=== PATIENT | male | born 1980 | race Caucasian/White ===

== ENCOUNTER 2024-04-02 09:24 | Emergency (ER) | payer SELFPAY ==
--- OUTSIDE RECORDS SUMMARY | 2024-04-02 09:27 | XMS REPORT | Continuity of Care Document ---
Author Name Unknown Address [address] [facility] [address] [id number] [facility] thconnect Address [address] [facility]. 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
[2024-04-02] MEDS ORDERED: KETOROLAC 30 MG/ML INJ ONE (09:41)
--- NOTE | 2024-04-02 10:01 | RAD REPORT ---
Exam:Shoulder Right 2+ Views History: Right shoulder pain Findings: No fracture or dislocation seen Mild narrowing of the AC joint with tiny osteophytes.
--- NOTE | 2024-04-02 10:01 | RAD REPORT ---
Exam:C Spine Ap/Lat CLINICAL INDICATION: Neck pain Findings: No fracture or dislocation seen. Mild anterior subluxation C7 on T1. Mild spondylosis involves the cervical spine.
--- NOTE | 2024-04-02 10:04 | RAD REPORT ---
Procedure: Chest Pa And Lat (2 Views) HISTORY: Cough COMPARISON: none FINDINGS: 5 mm nodular opacity medial left upper lobe. Remainder of the lungs appear clear of acute infiltrate. No significant pleural effusion noted. The heart is normal size. IMPRESSION: 5 mm nodular opacity left lung likely either a pulmonary vessel seen on end or a benign lung nodule. It is recommended that patient have a follow-up chest x-ray in 3 months for reevaluation.
--- NOTE | 2024-04-02 10:17 | ER ---
Nurse's Notes [facility] Name: Ander Hercules Age: 43 yrs Sex: Male : 1980 Arrival Date: 04/02/2024 Time: 09:24 Bed 14 Private MD: Diagnosis: Pain in right shoulder;Solitary pulmonary nodule;Spondylolysis, cervical region Presentation: 04/02 09:40 Chief complaint: Patient states: thinks he slept wrong, right shoulder is hurting since iw yesterday morning. Coronavirus screen: At this time, the client does not indicate any symptoms associated with coronavirus-19. Ebola Screen: No symptoms or risks identified at this time. Initial Sepsis Screen: Does the patient meet any 2 criteria? No. Patient's initial sepsis screen is negative. Does the patient have a suspected source of infection? No. Patient's initial sepsis screen is negative. Risk Assessment: Do you want to hurt yourself or someone else? Patient reports no desire to harm self or others. Onset of symptoms was March 31, 2024. 09:40 Method Of Arrival: Ambulatory iw 09:40 Acuity: ISIDORO 3 iw Historical: - Allergies: 09:41 No Known Allergies; iw - Home Meds: 09:41 None [Active]; iw - PMHx: 09:41 None; iw - PSHx: 09:41 None; iw - Immunization history:: Adult Immunizations unknown. - Infectious Disease History:: Denies. - Social history:: Smoking status: unknown. Screenin:16 [facility] ED Fall Risk Assessment (Adult) History of falling in the last 3 months, iw including since admission No falls in past 3 months (0 pts) Confusion or Disorientation No (0 pts) Intoxicated or Sedated No (0 pts) Impaired Gait No (0 pts) Mobility Assist Device Used No (0 pt) Altered Elimination No (0 pt) Score/Fall Risk Level 0 - 2 = Low Risk Oriented to surroundings. Abuse screen: Denies threats or abuse. Nutritional screening: No deficits noted. Tuberculosis screening: No symptoms or risk factors identified. Assessment: 09:45 General: Appears in no apparent distress. Behavior is calm, cooperative. Pain: iw Complains of pain in posterior aspect of right shoulder and anterior aspect of right shoulder. Neuro: Level of Consciousness is awake, alert, obeys commands, Oriented to person, place, time, situation, Moves all extremities. Full function. Cardiovascular: Patient's skin is warm and dry. Respiratory: Respiratory effort is even, unlabored, Respiratory pattern is regular. Derm: Skin is intact, is healthy with good turgor. 10:21 Reassessment: Patient appears in no apparent distress at this time. Patient and/or db family updated on plan of care and expected duration. Pain level reassessed. Patient is alert, oriented x 3, equal unlabored respirations, skin warm/dry/pink. Vital Signs: 09:41 BP 119 / 83; Pulse 69; Resp 18; Temp 98.4; Pulse Ox 100% ; Weight 61.23 kg; Height 5 iw ft. 10 in. ; Pain 3/10; 09:41 Body Mass Index 19.37 (61.23 kg, 177.8 cm) iw 09:41 Pain Scale: Adult iw ED Course: 09:27 Patient arrived in ED. mr 09:27 Lamin Shafer MD is Attending Physician. ec2 09:30 Attending Physician role handed off by Lamin Shafer MD ec2 09:30 Huber Cunha MD is Attending Physician. ec2 09:41 Triage completed. iw 09:49 Verna Strange, RN is Primary Nurse. iw 09:59 C Spine Ap/Lat XRAY In Process Unspecified. EDMS 09:59 Shoulder Right (2 View) XRAY In Process Unspecified. EDMS 09:59 Chest Pa And Lat (2 Views) XRAY In Process Unspecified. EDMS 10:16 Ortega Alfredo MD is Referral Physician. dale 10:17 Patient has correct armband on for positive identification. Provided Education on: . iw 10:17 No provider procedures requiring assistance completed. Patient did not have IV access iw during this emergency room visit. 10:32 Arm band placed on Patient placed in an exam room. db Administered Medications: 09:49 Drug: Ketorolac IM 60 mg IM once Route: IM; Site: right ventrogluteal; iw 10:21 Follow up: Response: No adverse reaction; Pain is decreased db Medication: 10:21 VIS not applicable for this client. db Outcome: 10:17 Discharge ordered by . dale 10:21 Discharged to home ambulatory, db 10:21 Condition: stable 10:21 Discharge instructions given to patient, Instructed on discharge instructions, follow up and referral plans. Prescriptions given X 2, 10:32 Patient left the ED. db Signatures: Dispatcher [employer] Huber Griffin MD MD cha Rivera, [facility], [facility] Reg mr Verna Strange RN RN iw Benton, Danielle, RN RN db Corral, Edwin, MD MD ec2
--- NOTE | 2024-04-02 10:17 | EDPHYS ---
Physician Documentation [facility] Name: Ander Hercules Age: 43 yrs Sex: Male : 1980 Arrival Date: 04/02/2024 Time: 09:24 Bed 14 Private MD: ED Physician Huber Cunha HPI: 04/02 10:01 This 43 yrs old Male presents to ER via Ambulatory with complaints of dale Shoulder Pain. Historical: - Allergies: 09:41 No Known Allergies; iw - Home Meds: 09:41 None [Active]; iw - PMHx: :41 None; iw - PSHx: 09:41 None; iw - Immunization history:: Adult Immunizations unknown. - Infectious Disease History:: Denies. - Social history:: Smoking status: unknown. ROS: 10:12 Constitutional: Negative for fever, chills, and weight loss, Eyes: Negative for injury, dale pain, redness, and discharge, ENT: Negative for injury, pain, and discharge, Neck: Negative for injury, pain, and swelling, Cardiovascular: Negative for chest pain, palpitations, and edema, Respiratory: Negative for shortness of breath, cough, wheezing, and pleuritic chest pain, Abdomen/GI: Negative for abdominal pain, nausea, vomiting, diarrhea, and constipation, Back: Negative for injury and pain, : Negative for injury, bleeding, discharge, and swelling, Skin: Negative for injury, rash, and discoloration, Neuro: Negative for headache, weakness, numbness, tingling, and seizure, Psych: Negative for depression, anxiety, suicide ideation, homicidal ideation, and hallucinations, Allergy/Immunology: Negative for hives, rash, and allergies, Endocrine: Negative for neck swelling, polydipsia, polyuria, polyphagia, and marked weight changes, Hematologic/Lymphatic: Negative for swollen nodes, abnormal bleeding, and unusual bruising, 10:12 MS/extremity: Positive for decreased range of motion, pain, tenderness, of the anterior aspect of right shoulder and posterior aspect of right shoulder, Exam: 10:12 Constitutional: This is a well developed, well nourished patient who is awake, alert, dale and in no acute distress. Head/Face: Normocephalic, atraumatic. Eyes: Pupils equal round and reactive to light, extra-ocular motions intact. Lids and lashes normal. Conjunctiva and sclera are non-icteric and not injected. Cornea within normal limits. Periorbital areas with no swelling, redness, or edema. ENT: Nares patent. No nasal discharge, no septal abnormalities noted. Tympanic membranes are normal and external auditory canals are clear. Oropharynx with no redness, swelling, or masses, exudates, or evidence of obstruction, uvula midline. Mucous membranes moist. Neck: Trachea midline, no thyromegaly or masses palpated, and no cervical lymphadenopathy. Supple, full range of motion without nuchal rigidity, or vertebral point tenderness. No Meningismus. Chest/axilla: Normal chest wall appearance and motion. Nontender with no deformity. No lesions are appreciated. Cardiovascular: Regular rate and rhythm with a normal S1 and S2. No gallops, murmurs, or rubs. Normal PMI, no JVD. No pulse deficits. Respiratory: Lungs have equal breath sounds bilaterally, clear to auscultation and percussion. No rales, rhonchi or wheezes noted. No increased work of breathing, no retractions or nasal flaring. Abdomen/GI: Soft, non-tender, with normal bowel sounds. No distension or tympany. No guarding or rebound. No evidence of tenderness throughout. Back: No spinal tenderness. No costovertebral tenderness. Full range of motion. Male : Normal genitalia with no discharge or lesions. Skin: Warm, dry with normal turgor. Normal color with no rashes, no lesions, and no evidence of cellulitis. Neuro: Awake and alert, GCS 15, oriented to person, place, time, and situation. Cranial nerves II-XII grossly intact. Motor strength 5/5 in all extremities. Sensory grossly intact. Cerebellar exam normal. Normal gait. Psych: Awake, alert, with orientation to person, place and time. Behavior, mood, and affect are within normal limits. 10:12 Musculoskeletal/extremity: ROM: intact in all extremities, full active range of motion, full passive range of motion, Circulation is intact in all extremities. Sensation intact. Compartment Syndrome exam of affected extremity: is normal. DVT Exam: No signs of deep vein thrombosis. no pain, no swelling, no tenderness, negative Homans' sign noted on exam, no appreciated bluish discoloration, no erythema, no increased warmth, Vital Signs: 09:41 BP 119 / 83; Pulse 69; Resp 18; Temp 98.4; Pulse Ox 100% ; Weight 61.23 kg; Height 5 iw ft. 10 in. ; Pain 06/08; 09:41 Body Mass Index 19.37 (61.23 kg, 177.8 cm) 09:41 Pain Scale: Adult iw MDM: 09:47 Medical Screening Exam initiated dale 10:13 Differential diagnosis: tendonitis. Data reviewed: vital signs, nurses notes, dale radiologic studies, plain films. Consideration of Admission/Observation Escalation of care including admission/observation considered. I considered the following discharge prescriptions or medication management in the emergency department Medications were administered in the Emergency Department. See MAR. Independent interpretation of the following test(s) in the Emergency Department X-Ray: My interpretation is cxr, shoulder, c spine. Test considered but Not performed: Labs: no labs. Historians other than the Patient: pt well informed. Care significantly affected by the following chronic conditions: none. 04/02 09:34 Order name: C Spine Ap/Lat XRAY; Complete Time: 10:09 [facility] 04/02 09:34 Order name: Shoulder Right (2 View) XRAY; Complete Time: 10:09 [facility] 04/02 09:34 Order name: Chest Pa And Lat (2 Views) XRAY; Complete Time: 10:09 [facility] 04/02 09:35 Order name: Sling; Complete Time: 10:20 [facility] Administered Medications: 09:49 Drug: Ketorolac IM 60 mg IM once Route: IM; Site: right ventrogluteal; iw 10:21 Follow up: Response: No adverse reaction; Pain is decreased db Disposition Summary: 04/02/24 10:17 Discharge Ordered Notes: Location: Home dale Problem: new dale Symptoms: have improved dale Condition: Stable dale Diagnosis - Pain in right shoulder dale - Solitary pulmonary nodule dale - Spondylolysis, cervical region dale Followup: dale - With: Private Physician - When: 2 - 3 days - Reason: Recheck today's complaints, Continuance of care, Re-evaluation by your physician Followup: dale - With: Ortega Alfredo MD - When: 2 - 3 days - Reason: Recheck today's complaints, Re-evaluation by your physician Discharge Instructions: - Discharge Summary Sheet dale - Joint Pain dale - Arthritis dale - Musculoskeletal Pain dale - Shoulder Pain dale - How to Use Cold Therapy, [id number] dale - Shoulder Range of Motion Exercises dale Forms: - Medication Reconciliation Form dale - Antibiotic Education dale - Prescription Opioid Use dale - Patient Portal Instructions dale - Leadership Thank You Letter dale Prescriptions: - Diclofenac Sodium 75 mg Oral tablet, delayed release (enteric coated) - take 1 tablet ORAL route 2 times per day; 20 tablet; Refills: 0, Product dale Selection Permitted - Medrol (Fish) 4 mg Oral Tablets, Dose Pack - take 1 tablet ORAL route as directed - follow package instructions; 1 packet; [facility] Refills: 0, Product Selection Permitted Signatures: Dispatcher [employer] EDMS Huber Cunha MD MD cha Williams, Irene, MJ BARKER iw Roseline Oliveira RN RN db Corrections: (The following items were deleted from the chart) :34 09:34 C Spine Ap/Lat+RAD.RAD.BRZ ordered. EDMS EDMS 09:35 09:35 Shoulder Right 2 View+RAD.RAD.BRZ ordered. EDMS EDMS 09:35 09:35 Chest Pa And Lat (2 Views)+RAD.RAD.BRZ ordered. EDMS EDMS
[2024-04-02 10:38] VITALS: BP 119/83; TEMP 98.4; O2SAT 100
== END 2024-04-02 10:32 | disposition home or self-care (01) ==
LOC: ER 09:24
DX: M25.511 Pain in right shoulder (principal); M47.812 Spondylosis without myelopathy or radiculopathy, cervical region; R91.1 Solitary pulmonary nodule
CPT/HCPCS: 71046; 72040; 96372; 99284